=== PATIENT | male | born 1990 | race Caucasian/White ===

== ENCOUNTER 2019-10-18 12:17 | Emergency (ER) | payer SELFPAY ==
[2019-10-18] MEDS ORDERED: ACETAMINOPHEN 500 MG TAB PO ONE (12:43)
[2019-10-18] MEDS ORDERED: SODIUM CHLORIDE 0.9% 1000ML 1,000 ML IVS ONE ×2 (12:43→13:47)
--- NOTE | 2019-10-18 12:48 | ED.PDOC ---
History of Present Illness - General Chief Complaint: Respiratory Problem Time Seen by Provider: 10/18/19 12:40 Source: patient, RN notes reviewed, Vital Signs reviewed Exam Limitations: no limitations - History of Present Illness Initial Comments: Pt is a 29 yo male with PMH of asthma who presents to ED for cough and SOB. States he awoke at 0300 this morning and felt short of breath and had subjective fever. He denies CP, abdominal pain, BOWMAN, neck stiffness, NVD or urinary symptoms. Pt was masked at all times that I was in the room. I wore mask and gloves and stood 6 feet apart exept for short period of time of auscultation for exam Allergies/Adverse Reactions: Allergies Sulfa Antibiotics Allergy (Unknown, Verified 10/18/19 12:45) Home Medications: Ambulatory Orders Albuterol Inhaler [Ventolin Hfa Inhaler] 2 puff INH Q6H PRN #1 inh 10/18/19 Albuterol Inhaler [Ventolin Hfa Inhaler] PRN 10/18/19 Amphetamine-Dextroamphetamine [Adderall] 1 tab PO DAILY 10/18/19 Azithromycin [Zithromax Z-Edgar] 250 mg PO DAILY #6 tab 10/18/19 Diazepam [Valium] 5 mg PO PRN 10/18/19 Trazodone HCl 10/18/19 Review of Systems - Review of Systems Constitutional: States: diaphoresis, fever - subjective. Denies: chills EENTM: Denies: double vision, nose congestion, throat pain Respiratory: States: cough, short of breath. Denies: stridor Cardiology: Denies: chest pain, edema, syncope Gastrointestinal/Abdominal: Denies: abdominal pain, diarrhea, nausea, vomiting Genitourinary: Denies: dysuria, frequency, hematuria Musculoskeletal: Denies: back pain, muscle pain Neurological: Denies: headache, paresthesia, weakness All other Systems: Reviewed and Negative Family Medical History - Family History Mother Family History: Unknown Living Status: Unknown Physical Exam - Physical Exam General Appearance: Alert, No apparent distress, Other - diaphoretic. Eye Exam: bilateral normal - PERRL Neck: non-tender, full range of motion, supple, other - no meningismus Respiratory: chest non-tender, lungs clear, normal breath sounds, no respiratory distress, other - Good air movement. No wheezes or stridor Cardiovascular/Chest: normal peripheral pulses, regular rate, rhythm, no edema Gastrointestinal/Abdominal: non tender, soft, no pulsatile mass Back Exam: no CVA tenderness Extremity: normal range of motion, no pedal edema, no calf tenderness Neurologic: no motor/sensory deficits, alert, normal mood/affect, oriented x 3 Skin Exam: normal color, diaphoresis Progress - Progress Progress: 10/18/19 14:05 Recheck patient. He is resting comfortably. No diaphoresis of difficulty breathing. O2 sat 96% on RA. IVF infusing and pulse has improved to 106. BP stable. Discussed early pneumonia on CXR and will give IV Rocephin here. Initial lactic 0.8. Will await final results and repeat lactic. 10/18/19 16:20 Pt presents to ED for 1 day h/o cough and fever. He has had no respiratory distress or hypoxia. Concern for COVID and test sent. Pt has no supplemental O2 requirement. Cannot r/o bacterial pneumonia based on CXR, so I have given IV Rocephin here and will start Z pack at home. 14 day self quarantine and hand hygiene and social distancing and mask discussed with pt. Pt UDS+. Has mild hyponatremia that I have treated with IVF and will need repeat blood draw by PCP within 1 week to ensure improvement. Lactic negative X 2. He will f/u with PCP in 1-2 days for recheck and I have given SRP for worsening SOB, fever or any other concerns. Pt agrees with plan of care. - Results/Orders Results/Orders: EKG--sinus tachy, rate 119, nml intervals, no ST abnormality CHEST XRAY EXAM DESCRIPTION: Chest,1 View CLINICAL HISTORY: Cough, shortness of breath COMPARISON: None Available. TECHNIQUE: One view radiograph of the chest FINDINGS: Cardiac silhouette shows normal heart size. Pulmonary vascularity is within normal limits. Mildly prominent peribronchial wall thickening bilaterally. Subtle linear opacities in the right lower lung zone may represent atelectasis versus infiltrate. No pleural effusion. No pneumothorax. No acute osseous abnormality. IMPRESSION: 1. Mildly prominent bronchial wall thickening is nonspecific, and can be seen with reactive airway changes versus bronchitis. 2. Subtle linear opacities right lower lung zone may represent atelectasis versus early infiltrate. 10/18/19 12:43 Telemetry .ONCE Sodium Chloride 0.9% (Flush) [Saline Flush Syringe] 10 ml IV PRN PRN EKG Stat Pulse Ox Stat 10/18/19 12:45 SARS-COV2 RT-PCR HIGH RISK Stat 10/18/19 13:31 BLOOD CULTURE Stat 10/18/19 13:40 Urine Culture Stat Laboratory Results - last 24 hr 10/18/19 10/18/19 10/18/19 13:00 13:00 13:00 WBC 16.4 H RBC 4.14 L Hgb 12.6 L Hct 36.0 L MCV 87.1 MCH 30.6 MCHC 35.1 RDW 13.0 Plt Count 314 MPV 7.5 Absolute Neuts (auto) 14.20 H Absolute Lymphs (auto) 0.80 L Absolute Monos (auto) 1.30 H Absolute Eos (auto) 0.10 Absolute Basos (auto) 0.10 Neutrophils % 86.6 H Lymphocytes % 4.9 L Monocytes % 7.7 Eosinophils % 0.4 L Basophils % 0.4 PT 11.1 H INR 1.12 PTT (SP) 33.2 H Sodium 129 L Potassium 3.6 Chloride 92 L Carbon Dioxide 24 Anion Gap 16.6 BUN 17 Creatinine 1.02 BUN/Creatinine Ratio 16.7 Random Glucose 129 H Serum Osmolality 262.2 L Lactic Acid Calcium 9.2 Total Bilirubin 2.0 H AST 32 ALT 26 Alkaline Phosphatase 83 Creatine Kinase 56 CK-MB (CK-2) 1.3 CK-MB (CK-2) % Not Reportable Troponin I < 0.02 Serum Total Protein 9.1 H Albumin 3.9 Globulin 5.2 H Albumin/Globulin Ratio 0.8 L Urine Color Urine Appearance Urine pH Ur Specific [place] Urine Protein Urine Glucose (UA) Urine Ketones Urine Blood Urine Nitrite Urine Bilirubin Urine Urobilinogen Ur Leukocyte Esterase Urine RBC Urine WBC Ur Epithelial Cells Amorphous Sediment Urine Bacteria Hyaline Casts Urine Mucus Urine Opiates Screen Urine Barbiturates Ur Phencyclidine Scrn U Amphetamin/Meth Scrn U Benzodiazepines Scrn U Cocaine Metab Screen U Cannabinoids Screen 10/18/19 10/18/19 10/18/19 13:00 13:40 13:40 WBC RBC Hgb Hct MCV MCH MCHC RDW Plt Count MPV Absolute Neuts (auto) Absolute Lymphs (auto) Absolute Monos (auto) Absolute Eos (auto) Absolute Basos (auto) Neutrophils % Lymphocytes % Monocytes % Eosinophils % Basophils % PT INR PTT (SP) Sodium Potassium Chloride Carbon Dioxide Anion Gap BUN Creatinine BUN/Creatinine Ratio Random Glucose Serum Osmolality Lactic Acid 0.8 Calcium Total Bilirubin AST ALT Alkaline Phosphatase Creatine Kinase CK-MB (CK-2) CK-MB (CK-2) % Troponin I Serum Total Protein Albumin Globulin Albumin/Globulin Ratio Urine Color Pope Urine Appearance Cloudy Urine pH 6.0 Ur Specific [place] 1.025 Urine Protein >=300 H Urine Glucose (UA) Negative Urine Ketones 15 H Urine Blood Negative Urine Nitrite Positive H Urine Bilirubin Small H Urine Urobilinogen 4.0 H Ur Leukocyte Esterase Negative Urine RBC 3-5 H Urine WBC 3-5 H Ur Epithelial Cells 3-5 Amorphous Sediment 1+ Urine Bacteria 2+ H Hyaline Casts 0-1 Urine Mucus Moderate Urine Opiates Screen Negative Urine Barbiturates Negative Ur Phencyclidine Scrn Negative U Amphetamin/Meth Scrn Positive H U Benzodiazepines Scrn Positive H U Cocaine Metab Screen Negative U Cannabinoids Screen Positive H 10/18/19 14:51 WBC RBC Hgb Hct MCV MCH MCHC RDW Plt Count MPV Absolute Neuts (auto) Absolute Lymphs (auto) Absolute Monos (auto) Absolute Eos (auto) Absolute Basos (auto) Neutrophils % Lymphocytes % Monocytes % Eosinophils % Basophils % PT INR PTT (SP) Sodium Potassium Chloride Carbon Dioxide Anion Gap BUN Creatinine BUN/Creatinine Ratio Random Glucose Serum Osmolality Lactic Acid 0.7 Calcium Total Bilirubin AST ALT Alkaline Phosphatase Creatine Kinase CK-MB (CK-2) CK-MB (CK-2) % Troponin I Serum Total Protein Albumin Globulin Albumin/Globulin Ratio Urine Color Urine Appearance Urine pH Ur Specific [place] Urine Protein Urine Glucose (UA) Urine Ketones Urine Blood Urine Nitrite Urine Bilirubin Urine Urobilinogen Ur Leukocyte Esterase Urine RBC Urine WBC Ur Epithelial Cells Amorphous Sediment Urine Bacteria Hyaline Casts Urine Mucus Urine Opiates Screen Urine Barbiturates Ur Phencyclidine Scrn U Amphetamin/Meth Scrn U Benzodiazepines Scrn U Cocaine Metab Screen U Cannabinoids Screen Departure - Departure Clinical Impression: Substance abuse, Hyponatremia Community acquired pneumonia Qualifiers: Laterality: right Lung location: lower lobe of lung Qualified Code(s): J18.9 - Pneumonia, unspecified organism Leukocytosis Qualifiers: Leukocytosis type: unspecified Qualified Code(s): D72.829 - Elevated white blood cell count, unspecified Time of Disposition: 16:16 Disposition: Discharge to Home or Self Care Condition: Good Departure Forms: ED Discharge - Pt. Copy, Patient Portal Self Enrollment Instructions: DI for Pneumonia -- Adult Diet: resume usual diet Activity: increase activity as tolerated Referrals: UNKNOWN,PHYSICIAN [Primary Care Provider] - 1-2 Days Prescriptions: Albuterol Inhaler [Ventolin Hfa Inhaler] 2 puff INH Q6H PRN #1 inh PRN Reason: Wheezing Azithromycin [Zithromax Z-Edgar] 250 mg PO DAILY #6 tab Home Medications: Ambulatory Orders Albuterol Inhaler [Ventolin Hfa Inhaler] 2 puff INH Q6H PRN #1 inh 10/18/19 Albuterol Inhaler [Ventolin Hfa Inhaler] PRN 10/18/19 Amphetamine-Dextroamphetamine [Adderall] 1 tab PO DAILY 10/18/19 Azithromycin [Zithromax Z-Edgar] 250 mg PO DAILY #6 tab 10/18/19 Diazepam [Valium] 5 mg PO PRN 10/18/19 Trazodone HCl 10/18/19 Additional Instructions: You have been tested for COVID 19. We will call you with results in 1-2 days and if you do not hear back, then will need to follow up with medical records for final result. you will need to self quarantine for 14 days, wash hands frequently, wear mask and stay away from others to prevent spreading the infection. Return to ED for worsening breathing or other concerns. use Tylenol every 4-6 hours for fever.
[2019-10-18] MEDS: SODIUM CHLORIDE 0.9% (FLUSH) 10 ML SYG IV PRN ×2 (13:07→14:33)
--- NOTE | 2019-10-18 13:56 | RAD ---
EXAM DESCRIPTION: Chest,1 View CLINICAL HISTORY: Cough, shortness of breath COMPARISON: None Available. TECHNIQUE: One view radiograph of the chest FINDINGS: Cardiac silhouette shows normal heart size. Pulmonary vascularity is within normal limits. Mildly prominent peribronchial wall thickening bilaterally. Subtle linear opacities in the right lower lung zone may represent atelectasis versus infiltrate. No pleural effusion. No pneumothorax. No acute osseous abnormality. IMPRESSION: 1. Mildly prominent bronchial wall thickening is nonspecific, and can be seen with reactive airway changes versus bronchitis. 2. Subtle linear opacities right lower lung zone may represent atelectasis versus early infiltrate. Electronically signed by: Bruce Delarosa MD 10/18/2019 1:54 PM CDT
[2019-10-18] MEDS ORDERED: cefTRIAXone SODIUM 1 GM in SODIUM CHL 0.9% 50ML MIN-BAG+ 50 ML IVPB ONE (14:01)
[2019-10-18] MEDS ORDERED: cefTRIAXone SODIUM 1 GM VIAL ONE (14:08)
[2019-10-18] MEDS ORDERED: SODIUM CHL 0.9% 50ML MIN-BAG+ 50 ML IVPB ONE (14:08)
[2019-10-18 16:53] VITALS: BP 152/76; TEMP 100.1; O2SAT 96
== END 2019-10-18 16:35 | disposition home or self-care (01) ==
LOC: ER 12:17
DX: J18.9 Pneumonia, unspecified organism (principal); D72.829 Elevated white blood cell count, unspecified; E87.1 Hypo-osmolality and hyponatremia; F19.10 Other psychoactive substance abuse, uncomplicated; J45.909 Unspecified asthma, uncomplicated; R50.9 Fever, unspecified; Z88.2 Allergy status to sulfonamides; Z79.899 Other long term (current) drug therapy
CPT/HCPCS: 36415; 71045; 80053; 80307; 81001; 82550; 82553; 83605; 84484; 85025; 85610; 85730; 87040; 87086; 87635; 93005; J0696; J7030; J7050

== ENCOUNTER 2020-01-12 03:37 | Emergency (ER) | payer SELFPAY ==
[2020-01-12] MEDS ORDERED: TETRACAINE HCL 0.5% OPHTH SOL 1 DROP RIGHT_EYE ONE (03:51)
[2020-01-12] MEDS ORDERED: FLUORESCEIN SODIUM OPHTH STRIP RIGHT_EYE ONE (03:54)
--- NOTE | 2020-01-12 04:08 | ED.PDOC ---
History of Present Illness - General Chief Complaint: Eye Problems Stated Complaint: Rt eye pain Time Seen by Provider: 01/12/20 03:51 Source: patient, RN notes reviewed Exam Limitations: no limitations - History of Present Illness Initial Comments: 29 y/o male with about 24 hrs of pain and clear d/c from R eye. No FB sensation. He is extremely sensitive to light. Denies visual changes He doesn't wear conact lenses. Timing/Duration: other - 24 hrs Severity: moderate EENT Location: eye (R) Prearrival Treatment: no prearrival treatment Presenting Symptoms: eye pain and photophobia, conjunctival discharge Improving Factors: other - dark Worsening Factors: other - light Allergies/Adverse Reactions: Allergies Sulfa Antibiotics Allergy (Unknown, Verified 10/18/19 12:45) Home Medications: Ambulatory Orders Albuterol Inhaler [Ventolin Hfa Inhaler] 2 puff INH Q6H PRN #1 inh 10/18/19 Albuterol Inhaler [Ventolin Hfa Inhaler] PRN 10/18/19 Amphetamine-Dextroamphetamine [Adderall] 1 tab PO DAILY 10/18/19 Diazepam [Valium] 5 mg PO PRN 10/18/19 Acetaminophen W/ Codeine [Tylenol W/ CODEINE #3] 1 ea PO Q6HR PRN 3 Days #12 01/12/20 Escitalopram Oxalate [Lexapro] 20 mg PO 01/12/20 Review of Systems - Review of Systems Constitutional: States: no symptoms reported EENTM: States: see HPI, eye pain, tearing Respiratory: States: no symptoms reported Cardiology: States: no symptoms reported Gastrointestinal/Abdominal: States: no symptoms reported Musculoskeletal: States: no symptoms reported Skin: States: no symptoms reported Neurological: States: no symptoms reported Past Medical History (General) - Patient Medical History Hx Seizures: No Hx Stroke: No Hx Dementia: No Hx Asthma: Yes Hx of COPD: No Hx Cardiac Disorders: No Hx Congestive Heart Failure: No Hx Pacemaker: No Hx Hypertension: No Hx Thyroid Disease: No Hx Diabetes: No Hx Gastroesophageal Reflux: No Hx Renal Disease: No Hx Cancer: No Hx of HIV: No Hx Hepatitis C: No Hx MRSA: No - Vaccination History Hx Tetanus, Diphtheria Vaccination: Yes Hx Influenza Vaccination: No Hx Pneumococcal Vaccination: No Immunizations Up to Date: No - Social History Hx Tobacco Use: No Hx Alcohol Use: No Hx Substance Use: No Hx Substance Use Treatment: No Hx Depression: No Family Medical History - Family History Mother Family History: Unknown Living Status: Unknown Physical Exam - Physical Exam General Appearance: Alert, No apparent distress Eye Exam: right other - constant tearing, R upper and lower lid with some edema. no foreighn body on direct exam and with lid eversion. fluorescein neg, left normal Throat Exam: normal mouth inspection Neck: full range of motion, supple, normal inspection Skin Exam: normal color, warm/dry Procedures - Eye Procedure Right Alcaine Drops Administered: Yes Cyclogel 2 Drops Administered: No Antibiotic Oinment/Drps Admin: tobradex Departure - Departure Clinical Impression: Acute eye pain, Photophobia of right eye Conjunctivitis Qualifiers: Conjunctivitis type: acute Acute conjunctivitis type: unspecified Laterality: right Qualified Code(s): H10.31 - Unspecified acute conjunctivitis, right eye Time of Disposition: 04:23 Disposition: Discharge to Home or Self Care Condition: Good Departure Forms: ED Discharge - Pt. Copy, Patient Portal Self Enrollment Instructions: DI for Eye Pain, Chorioretinitis, Conjunctivitis (Noninfectious Pinkeye) Prescriptions: Acetaminophen W/ Codeine [Tylenol W/ CODEINE #3] 1 ea PO Q6HR PRN 3 Days #12 PRN Reason: Moderate To Severe Pain Home Medications: Ambulatory Orders Albuterol Inhaler [Ventolin Hfa Inhaler] 2 puff INH Q6H PRN #1 inh 10/18/19 Albuterol Inhaler [Ventolin Hfa Inhaler] PRN 10/18/19 Amphetamine-Dextroamphetamine [Adderall] 1 tab PO DAILY 10/18/19 Diazepam [Valium] 5 mg PO PRN 10/18/19 Acetaminophen W/ Codeine [Tylenol W/ CODEINE #3] 1 ea PO Q6HR PRN 3 Days #12 01/12/20 Escitalopram Oxalate [Lexapro] 20 mg PO 01/12/20
[2020-01-12] MEDS ORDERED: TOBRAMYCIN SULF 0.3 % OPHT SOL 1 DROP RIGHT_EYE ONE (04:15)
[2020-01-12] MEDS ORDERED: DEXAMETHASONE 0.1% OPHTH SOL 1 DROP RIGHT_EYE ONE (04:18)
[2020-01-12 04:41] VITALS: BP 116/78; TEMP 98; O2SAT 100
== END 2020-01-12 04:35 | disposition home or self-care (01) ==
LOC: ER 03:37
DX: H57.11 Ocular pain, right eye (principal); H53.141 Visual discomfort, right eye; J45.909 Unspecified asthma, uncomplicated; Z79.899 Other long term (current) drug therapy; Z88.2 Allergy status to sulfonamides

== ENCOUNTER 2020-04-12 16:40 | Emergency (ER) | payer SELFPAY ==
[2020-04-12] MEDS ORDERED: AMOXICILLIN & POT CLAVULANATE 875 MG TAB PO ONE (16:54)
--- NOTE | 2020-04-12 16:57 | ED.PDOC ---
History of Present Illness - General Time Seen by Provider: 04/12/20 16:43 Source: patient Exam Limitations: no limitations - History of Present Illness Initial Comments: The patient is a 30-year-old male presented emergency room secondary to having small pieces of tile hit him on the scalp, he is breaking them up with a sledgehammer. The patient had a little 2 mm area to the frontal area of the scalp that was bleeding. It is now hemostatic. He has numerous other areas of small abrasions were the same things have happened over and over. None of these look infected at this time. All were hemostatic. None require repair. Timing/Duration: momentarily Severity: mild Improving Factors: nothing Worsening Factors: nothing Associated Symptoms: denies symptoms Allergies/Adverse Reactions: Allergies Sulfa Antibiotics Allergy (Unknown, Verified 10/18/19 12:45) Home Medications: Ambulatory Orders Albuterol Inhaler [Ventolin Hfa Inhaler] 2 puff INH Q6H PRN #1 inh 10/18/19 Albuterol Inhaler [Ventolin Hfa Inhaler] PRN 10/18/19 Amphetamine-Dextroamphetamine [Adderall] 1 tab PO DAILY 10/18/19 Diazepam [Valium] 5 mg PO PRN 10/18/19 Acetaminophen W/ Codeine [Tylenol W/ CODEINE #3] 1 ea PO Q6HR PRN 3 Days #12 01/12/20 Acetaminophen W/ Codeine [Tylenol W/ CODEINE #3] 1 ea PO Q6HR PRN 7 Days #20 01/12/20 Escitalopram Oxalate [Lexapro] 20 mg PO 01/12/20 Review of Systems - Review of Systems Constitutional: States: no symptoms reported EENTM: States: no symptoms reported Respiratory: States: no symptoms reported Cardiology: States: no symptoms reported Gastrointestinal/Abdominal: States: no symptoms reported Genitourinary: States: no symptoms reported Musculoskeletal: States: no symptoms reported Skin: States: see HPI Neurological: States: no symptoms reported Endocrine: States: no symptoms reported All other Systems: No Change from Baseline Past Medical History (General) - Patient Medical History Hx Seizures: No Hx Stroke: No Hx Dementia: No Hx Asthma: Yes Hx of COPD: No Hx Cardiac Disorders: No Hx Congestive Heart Failure: No Hx Pacemaker: No Hx Hypertension: No Hx Thyroid Disease: No Hx Diabetes: No Hx Gastroesophageal Reflux: No Hx Renal Disease: No Hx Cancer: No Hx of HIV: No Hx Hepatitis C: No Hx MRSA: No - Vaccination History Hx Tetanus, Diphtheria Vaccination: Yes Hx Influenza Vaccination: No Hx Pneumococcal Vaccination: No - Social History Hx Tobacco Use: No Hx Alcohol Use: No Hx Substance Use: No Hx Substance Use Treatment: No Hx Depression: No Family Medical History - Family History Mother Family History: Unknown Living Status: Unknown Physical Exam - Physical Exam General Appearance: Alert, Comfortable, No apparent distress Eye Exam: bilateral normal Ears, Nose, Throat: hearing grossly normal Neck: non-tender, full range of motion Respiratory: no respiratory distress, no accessory muscle use Cardiovascular/Chest: normal peripheral pulses, no edema Peripheral Pulses: radial,right: 2+, radial,left: 2+ Rectal Exam: deferred Extremity: normal range of motion, no pedal edema, normal capillary refill Neurologic: classified ad clerk II-XII nml as tested, alert, normal mood/affect, oriented x 3 Skin Exam: normal color, other - See above Progress - Progress Progress: 04/12/20 16:56 The patient is a 30-year-old male presents emergency room secondary to having sustained multiple abrasions to his scalp from flying pieces of tile. None of these areas require repair. No evidence of infection at this point. He is given 1 dose of Augmentin purely prophylactically. He does need to wear a helmet while doing this type of work or some sort of head covering. He can use topical Neosporin on these after he showers. He does need to wash his hair with a good antibacterial soap to Dial at least daily for the next 3 or 4 days. ER warnings are given for any worsening. teena [email or web address] [phone] Departure - Departure Clinical Impression: Scalp abrasion, non-infected Disposition: Discharge to Home or Self Care Condition: Fair Instructions: Wound Care (DC) Diet: regular diet Activity: increase activity as tolerated Home Medications: Ambulatory Orders Albuterol Inhaler [Ventolin Hfa Inhaler] 2 puff INH Q6H PRN #1 inh 10/18/19 Albuterol Inhaler [Ventolin Hfa Inhaler] PRN 10/18/19 Amphetamine-Dextroamphetamine [Adderall] 1 tab PO DAILY 10/18/19 Diazepam [Valium] 5 mg PO PRN 10/18/19 Acetaminophen W/ Codeine [Tylenol W/ CODEINE #3] 1 ea PO Q6HR PRN 3 Days #12 01/12/20 Acetaminophen W/ Codeine [Tylenol W/ CODEINE #3] 1 ea PO Q6HR PRN 7 Days #20 01/12/20 Escitalopram Oxalate [Lexapro] 20 mg PO 01/12/20 Additional Instructions: The patient is a 30-year-old male presents emergency room secondary to having sustained multiple abrasions to his scalp from flying pieces of tile. None of these areas require repair. No evidence of infection at this point. He is given 1 dose of Augmentin purely prophylactically. He does need to wear a helmet while doing this type of work or some sort of head covering. He can use topical Neosporin on these after he showers. He does need to wash his hair with a good antibacterial soap to Dial at least daily for the next 3 or 4 days. ER warnings are given for any worsening.
[2020-04-12 17:13] VITALS: BP 120/72; TEMP 97.1; O2SAT 98
== END 2020-04-12 17:08 | disposition home or self-care (01) ==
LOC: ER 16:40
DX: S00.91XA Abrasion of unspecified part of head, initial encounter (principal); W20.8XXA Other cause of strike by thrown, projected or falling object, initial encounter; Y92.9 Unspecified place or not applicable; Y93.89 Activity, other specified; J45.909 Unspecified asthma, uncomplicated; Z88.2 Allergy status to sulfonamides